=== PATIENT | male | born 2005 | race Caucasian/White ===

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

== ENCOUNTER 2024-08-07 14:27 | Emergency (ER) | payer BC, OTHER ==
[2024-08-07 15:01] VITALS: BP 139/80; PULSE 82
== END 2024-08-07 15:01 | disposition home or self-care (01) ==
LOC: FB.ED 14:27
DX: S67.191A Crushing injury of left index finger, initial encounter (principal); S67.193A Crushing injury of left middle finger, initial encounter; X58.XXXA Exposure to other specified factors, initial encounter; Y99.0 Civilian activity done for income or pay; Y92.89 Other specified places as the place of occurrence of the external cause
CPT/HCPCS: 73140-F2; 99283